=== PATIENT | female | born 1935 | race Caucasian/White ===

== ENCOUNTER 2016-08-26 00:09 | Inpatient (IN) | payer OTHER ==
[~2016-08-26] VITALS: Ht 152.4 cm; Wt 69.9 kg
[~2016-08-26 00:09] MED LIST: ADV25050 INHALATION; ALBU8.5H3 INH; BECL8.7A INH; CALC-695 PO; FLUT16SP17 NASAL; HYD25 PO; LORA10CA PO; LORA10TA3 PO; OMEP20CA16 PO; ONDA4TAB8 PO; PRED20TA PO; TRAZ50TA18 PO
[2016-08-26 01:10] VITALS: Ht 152.4 cm; Wt 69.9 kg
[2016-08-26 01:13] VITALS: BP 146/68; RESP 17
[2016-08-26] MEDS ORDERED: morphine 2 MG INJ IV PRN (03:00)
[2016-08-26] MEDS ORDERED: ONDANSETRON 4 MG INJ IV PRN (03:00)
--- NOTE | 2016-08-26 04:02 | RADRPT ---
PROCEDURE: XR Chest. CLINICAL INDICATION: Shortness of breath. TECHNIQUE: AP Portable chest. COMPARISON: 04/12/2015 FINDINGS: The cardiomediastinal silhouette is normal. The lungs are clear. The osseous structures are unrema rkable. IMPRESSION: No acute findings. RPTAT: HIKT .Ernst Shrestha MD, MD Date Time Electronically viewed and signed by .Ernst Shrestha MD, MD on 08/26/2016 04:02 .T/
[2016-08-26] MEDS: ALBUTEROL/IPRATROPIUM (NEB) 3 ML AMP HHN SCH ×3 (04:12→14:22)
[2016-08-26] MEDS: ACETAMINOPHEN 325 MG TAB PO PRN ×2 (06:32→15:17)
[2016-08-26 06:44] LABS: ADD SCAN DIFF NO
[2016-08-26 06:51] LABS: ABNORMAL IP MESSAGE 1; EOSINOPHILS # 0.1 10^3/ul (0.0-0.5); EOSINOPHILS % 1.7 % (0.0-7.0); HEMATOCRIT 33.4 % (37.0-47.0); HEMOGLOBIN 11.8 g/dl (12.0-16.0); LYMPHOCYTES # 1.2 10^3/ul (0.8-2.9); LYMPHOCYTES % 21.3 % (15.0-51.0); MEAN CORPUSCULAR HEMOGLOBIN 31.2 pg (29.0-33.0); MEAN CORPUSCULAR HGB CONC 35.3 g/dl (32.0-37.0); MEAN CORPUSCULAR VOLUME 88.4 fl (82.0-101.0); MEAN PLATELET VOLUME 11.2 fl (7.4-10.4); MONOCYTE # 0.1 10^3/ul (0.3-0.9); MONOCYTES % 2.3 % (0.0-11.0); NEUTROPHIL # 4.2 10^3/ul (1.6-7.5); PLATELET COUNT 92 10^3/UL (140-415); RED BLOOD COUNT 3.78 10^6/ul (4.20-5.40); RED CELL DISTRIBUTION WIDTH 13.5 % (11.5-14.5); WHITE BLOOD COUNT 5.7 10^3/ul (4.8-10.8)
[2016-08-26 07:10] VITALS: BP 138/66; RESP 18
[2016-08-26 07:51] LABS: ALBUMIN 4.2 g/dl (3.3-4.9); ALBUMIN/GLOBULIN RATIO 1.23; BILIRUBIN,INDIRECT 0.3 mg/dl (0-1.1); BILIRUBIN,TOTAL 0.3 mg/dl (0.2-1.3); CALCIUM 8.8 mg/dl (8.4-10.2); CREATININE 0.81 mg/dl (0.44-1.00); PHOSPHORUS 4.7 mg/dl (2.5-4.9); POTASSIUM 3.9 mmol/L (3.5-5.1); TOTAL PROTEIN 7.6 g/dl (6.1-8.1)
[2016-08-26 08:10] LABS: PLATELET ESTIMATE PLT APPEAR DECREASED
[2016-08-26] MEDS ORDERED: SALMETEROL/FLUTICASONE 250/50 INHA INH SCH (09:00)
[2016-08-26] MEDS ORDERED: METHYLPREDNISOLONE 125 MG INJ IV SCH (09:00)
[2016-08-26] MEDS ORDERED: ALEN35TA23 PO (10:24)
[2016-08-26] MEDS ORDERED: DICL50TA11 PO (10:24)
[2016-08-26] MEDS ORDERED: DOCU-159 PO (10:24)
[2016-08-26] MEDS ORDERED: MOME13HF INHALATION (10:24)
--- NOTE | 2016-08-26 16:54 | HP ---
Date/Time of Note Date/Time of Note DATE: 08/26/16 TIME: 16:37 Assessment/Plan VTE Prophylaxis VTE Prophylaxis Intervention: heparin Lines/Catheters IV C[facility] Type (from [facility] Saline Lock Urinary Cath still in place: No Assessment/Plan Assessment/Plan 1. Shortness of breath, pneumonia related, CT scan r/o others(nodular lesions), levaquin 2. Hypertension, stable 3. Arthritis, stable 4. DVT prophylaxis: heparin HPI/ROS Admit Date/Time Admit Date/Time August 26, 2016 at 01:05 Hx of Present Illness 81 years old female with hypertension, arthritis, and sciatica presents with 2 weeks gradually worsening shortness of breath and dry cough. It gets worse with fever at home. No orthopnea. She feels weak. ROS Constitutional: fatigue, febrile Respiratory: cough, shortness of breath, No sputum Cardiovascular: No chest pain, No edema, No lightheadedness, No no complaints, No orthopenea, No other, No palpitations, No paroxysmal nocturnal dyspnea Gastrointestinal: No blood, No constipation, No decreased appetite, No diarrhea , No flatus, No nausea, No no complaints, No other, No pain, No passing stool, No vomiting Genitourinary: No bleeding, No discharge, No dysuria, No flank pain, No hematuria, No no complaints, No other Musculoskeletal: No back pain, No bone/joint pain, No neck pain, No no complaints, No other, No restricted range of motion, No swelling Skin: No bruising, No erythema, No laceration, No no complaints, No other, No pruritis, No rash, No skin lesions Neurologic: No confusion, No dizziness, No focal-weakness, No headache, No no complaints, No other, No seizure, No syncope Endocrine: No dry skin, No no complaints, No other, No polydypsia, No polyuria , No temp intolerance, No weight change Lymphatic: No adenopathy, No lymphadema, No no complaints, No other, No tender nodes PMH/Family/Social Past Medical History Medical History: hypertension Family History Significant Family History: no pertinent family hx Social History Alcohol Use: none Smoking Status: Never smoker Drug Use: none Exam/Review of Systems Vital Signs Vitals Vital Signs Date Time Temp Pulse Resp B/P Pulse Ox O2 Delivery O2 Flow Rate FiO2 08/26/16 14:22 72 16 97 21 08/26/16 08:00 Nasal Cannula 08/26/16 07:10 97.8 138/66 Intake and Output 08/25/16 08/25/16 08/26/16 15:00 23:00 07:00 Intake Total 750 ml Balance 750 ml Exam Constitutional: alert, oriented, well developed Psych: nl mood/affect, no complaints Head: atraumatic, normocephalic Eyes: EOMI, nl conjunctiva, nl lids ENMT: nl external ears & nose, nl lips & teeth, nl nasal mucosa & septum Neck: non-tender, supple Respiratory: clear to auscultation, normal air movement, No congested cough, No crackles/rales, No diminished breath sounds, No intercostal retraction, No labored breathing, No other, No respirations, No tactile fremitus, No wheezing Cardiovascular: nl pulses, regular rate and rhythm, No S3, No S4, No bruits, No diastolic murmur, No edema, No gallop, No irregular rhythm, No jugular venous distention (JVD), No murmurs/extra sounds, No other, No rub, No systolic murmur Gastrointestinal: nl liver, spleen, non-tender, soft, No ascites, No bowel sounds, No distended, No firm, No hepatomegaly, No mass , No other, No rebound or guarding, No splenomegaly, No surgical scars, No tender Musculoskeletal: nl extremities to inspection Extremities: normal pulses, No calf tenderness, No clubbing, No cyanosis, No edema, No other, No palpable cord, No pitting pedal edema, No tenderness Neurological: INDUSTRIAL PSYCHOLOGIST II-XII intact, nl mental status, nl speech, nl strength Skin: nl turgor, rash or lesions Lymph: nl lymph nodes Labs Result Diagram: 08/26/1655 08/26/1655 Medications Medications Current Medications Methylprednisolone Sodium Succinate (Solu-Medrol) 80 mg DAILY IV Last administered on 08/26/16 08:53; Admin Dose 80 MG; Start 08/26/16 at 09:00 Salmeterol Xinafoate/ Fluticasone (Advair 250/50 Diskus) 1 inh BID INH Last administered on 08/26/16 08:53; Admin Dose 1 INH; Start 08/26/16 at 09:00 Acetaminophen (Tylenol Tab) 650 mg Q6H PRN PO PAIN AND OR ELEVATED TEMP Last administered on 08/26/16t 15:17; Admin Dose 650 MG; Start 08/26/16 at 03:00 Ondansetron HCl (Zofran Inj) 4 mg Q6H PRN IV NAUSEA AND/OR VOMITING; Start at 03:00 Morphine Sulfate (morphine) 2 mg Q4H PRN IV PAIN LEVEL 7-10; Start 08/26/16 at 03:00 JAMAL KUHN MD August 26, 2016 16:47
[2016-08-26] MEDS ORDERED: ALBUTEROL/IPRATROPIUM (NEB) 3 ML AMP HHN PRN (17:00)
[2016-08-26] MEDS: LEVOFLOXACIN 500MG/D5W (PMX) 100 ML IVPB SCH (17:50)
[2016-08-26] MEDS: HYDROCHLOROTHIAZIDE 25 MG TAB PO SCH (17:50)
--- NOTE | 2016-08-26 19:54 | RADRPT ---
PROCEDURE: CT Chest without contrast (high resolution). CLINICAL INDICATION: Abnormal chest x-ray demonstrating nodular infiltrates. TECHNIQUE: High-resolution CT scan of the chest was performed without the administration of intrav enous contrast. Coronal and sagittal reformatted images were obtained from the axial source images. Patient was examined during both deep inspiration and full expiration. Images were reviewed on a h igh resolution PACS workstation. CTDIvol (mGy): 14.31, 3.11, 2.41, 3.06, 2.92, 2.44, 3.41; Total E xam DLP (mGy-cm): 598.09. COMPARISON: Chest x-ray 08/26/2016. FINDINGS: Limited imaging of the lower neck is unremarkable. The heart is not enlarged. There is no pericardial effusion. There is no bulky mediastinal, hilar or axillary lymphadenopathy. Scattered small mediastinal lymph nodes are present. The thoracic aor ta is normal in caliber with atherosclerotic calcification. Coronary artery calcifications are pres ent. The pulmonary arteries are not enlarged. Low lung volumes are observed. Interstitial thickening is seen within the lung apices and lung base s. Scattered reticular markings are seen throughout the lungs. There is no subpleural cystic saravia e. There is no substantial ground-glass opacification of the pulmonary parenchyma. Diffuse bronchi al wall thickening is observed. There is a calcified granuloma of the left upper lobe. Trace pleura l thickening is seen within the lung bases. Limited imaging of the upper abdomen demonstrates a large hiatal hernia. Degenerative changes of the thoracic spine are present. Chest wall soft tissues are unremarkable. IMPRESSION: Low lung volumes with mild nonspecific interstitial thickening of the lung apices and lung bases. Scattered reticular markings throughout the lungs, likely partially reflecting scarring and atelecta tic change. Tiny calcified granuloma of the left upper lobe. RPTAT: HLST .Jennifer Gardner MD, MD Date Time Electronically viewed and signed by .Jennifer Gardner MD, MD on 08/26/2016 19:54 .T/
[2016-08-26 20:11] VITALS: BP 153/69; RESP 18
[2016-08-26] MEDS: DICLOFENAC (EC) 25 MG TAB PO SCH (20:45)
[2016-08-26] MEDS: SALMETEROL/FLUTICASONE 250/50 INHA INH SCH (20:46)
[2016-08-26] MEDS: DOCUSATE SODIUM 100 MG CAP PO SCH (20:46)
[2016-08-26] MEDS: HEPARIN 5,000 UNIT/0.5 ML VIAL SC SCH (20:49)
[2016-08-26] MEDS ORDERED: traZODone 50 MG TAB PO SCH (21:00)
[2016-08-26] MEDS ORDERED: FLUTICASONE 0.05% 16 GM NAS SPRAY NASAL SCH (21:00)
[2016-08-26] MEDS: CALCIUM CARBONATE 500 MG CHEW TAB PO PRN (23:13)
[2016-08-27] MEDS: PANTOPRAZOLE (EC) 40 MG TAB PO SCH (05:12)
[2016-08-27 05:14] LABS: ADD SCAN DIFF NO
[2016-08-27] MEDS: ACETAMINOPHEN 325 MG TAB PO PRN (05:15)
[2016-08-27 05:17] LABS: ABNORMAL IP MESSAGE 1; HEMATOCRIT 31.5 % (37.0-47.0); MEAN CORPUSCULAR HGB CONC 34.9 g/dl (32.0-37.0); MEAN CORPUSCULAR VOLUME 88.7 fl (82.0-101.0); MEAN PLATELET VOLUME 11.9 fl (7.4-10.4); PLATELET COUNT 92 10^3/UL (140-415); RED BLOOD COUNT 3.55 10^6/ul (4.20-5.40); RED CELL DISTRIBUTION WIDTH 13.5 % (11.5-14.5); WHITE BLOOD COUNT 8.6 10^3/ul (4.8-10.8)
[2016-08-27 05:38] LABS: CALCIUM 8.9 mg/dl (8.4-10.2); CREATININE 1.09 mg/dl (0.44-1.00); POTASSIUM 4.3 mmol/L (3.5-5.1)
[2016-08-27 06:08] LABS: THYROID STIMULATING HORMONE 1.21 MIU/L (0.465-4.680)
[2016-08-27 07:20] VITALS: BP 154/69; RESP 20
[2016-08-27] MEDS: HEPARIN 5,000 UNIT/0.5 ML VIAL SC SCH ×2 (08:16→21:37)
[2016-08-27] MEDS: HYDROCHLOROTHIAZIDE 25 MG TAB PO SCH (08:17)
[2016-08-27] MEDS: DICLOFENAC (EC) 25 MG TAB PO SCH (08:17)
[2016-08-27] MEDS: SALMETEROL/FLUTICASONE 250/50 INHA INH SCH ×2 (08:18→21:34)
[2016-08-27] MEDS: DOCUSATE SODIUM 100 MG CAP PO SCH ×2 (08:18→21:35)
[2016-08-27 09:49] LABS: EOSINOPHILS # 2.2 10^3/ul (0.0-0.5); LYMPHOCYTES # 2.4 10^3/ul (0.8-2.9); MONOCYTE # 0.7 10^3/ul (0.3-0.9)
[2016-08-27] MEDS ORDERED: LORATADINE 10 MG TAB PO SCH (10:00)
--- NOTE | 2016-08-27 14:58 | PN ---
Date/Time of Note Date/Time of Note DATE: 08/27/16 TIME: 14:56 Assessment/Plan VTE Prophylaxis VTE Prophylaxis Intervention: heparin Lines/Catheters IV C[facility]ter Type (from [facility]): Saline Lock Urinary Cath still in place: No Assessment/Plan Assessment/Plan 1. Acute bronchitis, on levaquin 2. nasal congestion, on flunase and clarinex, CT sinuses 3. Hypertension, stable 4. Arthritis, stable 5. DVT prophylaxis: heparin Subjective 24 Hr Interval Summary Free Text/Dictation nasal congestion, less cough and shortness of breath Exam/Review of Systems Vital Signs Vitals Vital Signs Date Time Temp Pulse Resp B/P Pulse Ox O2 Delivery O2 Flow Rate FiO2 08/27/16 13:19 95 2.0 08/27/16 13:19 77 18 Nasal Cannula 08/27/16 07:20 98.6 154/69 08/26/16 14:22 21 Intake and Output 08/26/16 08/26/16 08/27/16 15:00 23:00 07:00 Intake Total 940 ml 250 ml Balance 940 ml 250 ml Exam Constitutional: alert, oriented, well developed Head: atraumatic, normocephalic Eyes: EOMI, nl conjunctiva, nl lids ENMT: nl external ears & nose, nl lips & teeth Neck: non-tender, supple Respiratory: clear to auscultation, normal air movement, No congested cough, No crackles/rales, No diminished breath sounds, No intercostal retraction, No labored breathing, No other, No respirations, No tactile fremitus, No wheezing Cardiovascular: nl pulses, regular rate and rhythm, No S3, No S4, No bruits, No diastolic murmur, No edema, No gallop, No irregular rhythm, No jugular venous distention (JVD), No murmurs/extra sounds, No other, No rub, No systolic murmur Gastrointestinal: nl liver, spleen, non-tender, soft, No ascites, No bowel sounds, No distended, No firm, No hepatomegaly, No mass , No other, No rebound or guarding, No splenomegaly, No surgical scars, No tender Musculoskeletal: nl extremities to inspection Extremities: normal pulses, No calf tenderness, No clubbing, No cyanosis, No edema, No other, No palpable cord, No pitting pedal edema, No tenderness Neurological: DUMPER BULK SYSTEM II-XII intact, nl mental status, nl speech, nl strength Skin: nl turgor Lymph: nl lymph nodes Results Result Diagram: 08/27/1641908/27/16419 Results 24 hrs Laboratory Tests Test 08/27/16 04:20 White Blood Count 8.6 # Red Blood Count 3.55 L Hemoglobin 11.0 L Hematocrit 31.5 L Mean Corpuscular Volume 88.7 Mean Corpuscular Hemoglobin 31.0 Mean Corpuscular Hemoglobin Concent 34.9 Red Cell Distribution Width 13.5 Platelet Count 92 L Mean Platelet Volume 11.9 H Neutrophils % 35.0 L Band Neutrophils % 2.0 Lymphocytes % 28.0 Reactive Lymphocytes % 1.0 Monocytes % 8.0 Eosinophils % 25.0 H Metamyelocytes % 1.0 H Neutrophils # 3.0 Lymphocytes # 2.4 Monocytes # 0.7 Eosinophils # 2.2 H Metamyelocytes # 0.1 Sodium Level 130 L Potassium Level 4.3 Chloride Level 96 L Carbon Dioxide Level 27 Anion Gap 11 Blood Urea Nitrogen 22 H Creatinine 1.09 H Glucose Level 101 # Calcium Level 8.9 Thyroid Stimulating Hormone (TSH) 1.210 Medications Medications Current Medications Acetaminophen (Tylenol Tab) 650 mg Q6H PRN PO PAIN AND OR ELEVATED TEMP Last administered on 08/27/16 05:15; Admin Dose 650 MG; Start 08/26/16 at 03:00 Ondansetron HCl (Zofran Inj) 4 mg Q6H PRN IV NAUSEA AND/OR VOMITING; Start at 03:00 Morphine Sulfate 2 mg 2 mg Q4H PRN IV PAIN LEVEL 7-10; Start 08/26/16 at 03:00 Levofloxacin/ Dextrose (Levaquin 500mg/ D5W 100 ml (Pmx)) 100 ml @ 100 mls/hr Q24H IVPB Last administered on 08/26/16 17:50; Admin Dose 100 MLS/HR; Start at 17:00 Heparin Sodium (Porcine) (Heparin (5000 Units/0.5 ml)) 5,000 unit BID SC Last administered on 08/27/16 08:16; Admin Dose 5,000 UNIT; Start 08/26/16 at 21:00 Diclofenac Sodium (Voltaren) 50 mg DAILY PO Last administered on 08/27/16 08: 17; Admin Dose 50 MG; Start 08/26/16 at 17:30 Docusate Sodium (Colace) 100 mg BID PO Last administered on 08/27/16 08:18; Admin Dose 100 MG; Start 08/26/16 at 21:00 Fluticasone Propionate (Flonase 0.05% Nasal) 1 spray QHS NASAL Last administered on 08/26/16 20:46; Admin Dose 1 SPRAY; Start 08/26/16 at 21:00 Hydrochlorothiazide (Hydrochlorothiazide) 25 mg DAILY PO Last administered on 08:17; Admin Dose 25 MG; Start 08/26/16 at 17:30 Salmeterol Xinafoate/ Fluticasone (Advair 250/50 Diskus) 1 inh BID INH Last administered on 08/27/16 08:18; Admin Dose 1 INH; Start 08/26/16 at 21:00 Pantoprazole (Protonix Tab) 40 mg DAILY@06 PO Last administered on 08/27/16 05 :12; Admin Dose 40 MG; Start 08/27/16 at 06:00 Trazodone HCl (Desyrel) 50 mg HS PO ; Start 08/27/16 at 21:00 Calcium Carbonate (Tums) 500 mg Q4H PRN PO HEARTBURN Last administered on 23:13; Admin Dose 500 MG; Start 08/26/16 at 23:00 JAMAL KUHN MD August 27, 2016 14:58
[2016-08-27] MEDS: LEVOFLOXACIN 500MG/D5W (PMX) 100 ML IVPB SCH (16:01)
[2016-08-27] MEDS: LORATADINE 10 MG TAB PO SCH (16:01)
--- NOTE | 2016-08-27 16:54 | RADRPT ---
PROCEDURE: CT Sinus noncontrast CLINICAL INDICATION: Sinus congestion. TECHNIQUE: Noncontrast CT of the head and paranasal sinuses was performed with multiplanar reformatt ed images then generated from the axial acquired data. The administered radiation dose was CTDI vol = 23.74 mGy, DLP = 383.02 mGy-cm. One or more of the following dose reduction techniques were used: Automated exposure control, Adjustment of the mA and/or kV according to patient size, or Use of ite rative reconstruction technique. COMPARISON: There are no similar studies submitted for comparison. FINDINGS: NASAL CAVITY: There is rightward nasal septal deviation. There is a large central osseous spur defor glenys the right inferior turbinate nearly contacting the right lateral nasal cavity wall. There is pr ominent soft tissue within the bilateral middle and left greater than right nasal cavity suggesting polyps or mucosal thickening. SKULL BASE: The cribriform plate is minimally lower on the left. The fovea ethmoidalis is mildly low er on the right. FRONTAL SINUSES: There is mild to moderate bilateral frontal sinus mucosal thickening obstructing th e bilateral frontal recesses. There are bilateral Agger nasi air cells. ETHMOID SINUSES: There is moderate to extensive bilateral ethmoid sinus mucosal thickening. SPHENOID SINUSES: There are mild bilateral sphenoid sinus air fluid level suggesting acute sinusitis . There is mild bilateral sphenoid sinus mucosal thickening obstructing the bilateral sphenoid osti a. There is pneumatization of the left pterygoid plate. MAXILLARY SINUSES: There is mild bilateral maxillary sinus mucosal thickening obstructing the bilate ral sphenoid ostia. There is mild right maxillary sinus air fluid level suggesting acute sinusitis. SKULL: The patient is status post bilateral lens surgery. There is mild to moderate central greater than peripheral cerebral volume loss. There is moderate periventricular hypoattenuation suggesting chronic microvascular ischemic changes. There are mild vascular calcifications within the intracran ial carotid arteries. The bilateral mastoid air cells are well-aerated. OSSEOUS STRUCTURES: No destructive osseous lesion is identified. IMPRESSION: 1. Mild to moderate bilateral frontal sinus mucosal thickening obstructing the bilateral frontal re cesses. 2. Moderate to extensive bilateral ethmoid sinus mucosal thickening. 3. Mild bilateral sphenoid sinus and mild right maxillary sinus air fluid levels suggesting acute s inusitis. 4. Mild bilateral sphenoid sinus mucosal thickening obstructing the bilateral sphenoid ostia. 5. Mild bilateral maxillary sinus mucosal thickening obstructing the bilateral ostiomeatal units. 6. Rightward nasal septal deviation. 7. Soft tissue within the bilateral nasal cavity suggesting polyps or mucosal thickening. Direct i nspection may be performed as clinically warranted. Further findings as detailed above. RPTAT: PP .Guido Giles MD, Date Time Electronically viewed and signed by .Guido Giles MD, on 08/27/2016 16:53 .F/
[2016-08-27 20:11] VITALS: BP 135/62; RESP 19
[2016-08-27] MEDS: FLUTICASONE 0.05% 16 GM NAS SPRAY NASAL SCH (21:34)
[2016-08-27] MEDS: traZODone 50 MG TAB PO SCH (21:35)
[2016-08-27] MEDS: CALCIUM CARBONATE 500 MG CHEW TAB PO PRN (22:37)
[2016-08-28] MEDS ORDERED: ARTIFICIAL TEARS 15 ML OPH BOTH EYES PRN (01:00)
[2016-08-28] MEDS: PANTOPRAZOLE (EC) 40 MG TAB PO SCH (05:14)
[2016-08-28 06:58] LABS: POTASSIUM 4.1 mmol/L (3.5-5.1)
[2016-08-28 07:01] LABS: CREATININE 0.86 mg/dl (0.44-1.00)
[2016-08-28 07:02] LABS: CALCIUM 9.1 mg/dl (8.4-10.2)
[2016-08-28 07:10] VITALS: BP 161/67; RESP 79
[2016-08-28] MEDS: SALMETEROL/FLUTICASONE 250/50 INHA INH SCH ×2 (08:40→20:29)
[2016-08-28] MEDS: DICLOFENAC (EC) 25 MG TAB PO SCH (08:41)
[2016-08-28] MEDS: DOCUSATE SODIUM 100 MG CAP PO SCH ×2 (08:41→20:29)
[2016-08-28] MEDS: LORATADINE 10 MG TAB PO SCH (08:42)
[2016-08-28] MEDS: FLUTICASONE 0.05% 16 GM NAS SPRAY NASAL SCH ×2 (08:42→20:29)
[2016-08-28] MEDS: HYDROCHLOROTHIAZIDE 25 MG TAB PO SCH (08:42)
[2016-08-28] MEDS: HEPARIN 5,000 UNIT/0.5 ML VIAL SC SCH (08:43)
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
--- NOTE | 2016-08-28 17:12 | RADRPT ---
PROCEDURE: US Carotids. CLINICAL INDICATION: Syncope. TECHNIQUE: Sonographic images of the bilateral carotid arteries were obtained using sainz scale and color Doppler imaging. The images were reviewed on a PACS workstation. COMPARISON: None available. FINDINGS: Right: CCA 82.2-95.8 cm/sec Prox ICA 58.4 cm/sec Mid ICA 66.7 cm/sec Dist ICA 72.2 cm/sec ECA 91.8 cm/sec ICA/CCA 0.9 Left: CCA 82.1-85.7 cm/sec Prox ICA 183.6 cm/sec Mid ICA 68.6 cm/sec Dist ICA 67 cm/sec ECA 93.6 cm/sec ICA/CCA 2.2 Antegrade flow is seen within the vertebral arteries bilaterally. There is approximate 38% luminal n arrowing of the right carotid bulb and approximately 47% narrowing of the left carotid bulb. IMPRESSION: 1. There is elevated flow velocity with associated luminal narrowing corresponding to 50-69% stenos is of the proximal left ICA. validated velocity measurements with angiographic measurements, velocit y criteria are extrapolated from diameter data as defined by the Society of Radiologists in [facility] Consensus Conference Radiology 2003; 229;340-346. This study does indirectly reference the measu rement of the distal ICA diameter as the denominator for stenosis measurement. 2. Non hemodynamically significant stenosis of the carotid bulbs bilaterally. 3. Antegrade flow seen within the vertebral arteries bilaterally. RPTAT: HLBP .Ismael Durbin MD, Date Time Electronically viewed and signed by .Ismael Durbin MD, MD on 08/28/2016 17:11 .P/
[2016-08-28] MEDS: LEVOFLOXACIN 500MG/D5W (PMX) 100 ML IVPB SCH (18:22)
[2016-08-28] MEDS: traZODone 50 MG TAB PO SCH (20:29)
[2016-08-28 22:37] VITALS: BP 139/63; RESP 19
[2016-08-29] MEDS: ACETAMINOPHEN 325 MG TAB PO PRN (01:37)
[2016-08-29] MEDS: LEVOFLOXACIN 250 MG TAB PO SCH (05:46)
[2016-08-29] MEDS: PANTOPRAZOLE (EC) 40 MG TAB PO SCH (05:46)
[2016-08-29 07:45] LABS: ADD SCAN DIFF NO
[2016-08-29 07:53] LABS: ABNORMAL IP MESSAGE 1; BASOPHILS % 0.1 % (0.0-2.0); EOSINOPHILS # 0.3 10^3/ul (0.0-0.5); HEMATOCRIT 32.6 % (37.0-47.0); HEMOGLOBIN 11.3 g/dl (12.0-16.0); LYMPHOCYTES # 2.1 10^3/ul (0.8-2.9); LYMPHOCYTES % 22.1 % (15.0-51.0); MEAN CORPUSCULAR HEMOGLOBIN 30.3 pg (29.0-33.0); MEAN CORPUSCULAR HGB CONC 34.7 g/dl (32.0-37.0); MEAN CORPUSCULAR VOLUME 87.4 fl (82.0-101.0); MEAN PLATELET VOLUME 11.7 fl (7.4-10.4); MONOCYTES % 10.5 % (0.0-11.0); NEUTROPHIL # 5.6 10^3/ul (1.6-7.5); NEUTROPHILS % 58.8 % (39.0-77.0); PLATELET COUNT 108 10^3/UL (140-415); RED BLOOD COUNT 3.73 10^6/ul (4.20-5.40); RED CELL DISTRIBUTION WIDTH 13.3 % (11.5-14.5); WHITE BLOOD COUNT 9.5 10^3/ul (4.8-10.8)
[2016-08-29 08:11] LABS: POTASSIUM 3.6 mmol/L (3.5-5.1)
[2016-08-29 08:14] LABS: CALCIUM 8.9 mg/dl (8.4-10.2); CREATININE 0.94 mg/dl (0.44-1.00)
[2016-08-29 08:36] VITALS: BP 125/54; RESP 16
[2016-08-29] MEDS: LORATADINE 10 MG TAB PO SCH (08:56)
[2016-08-29] MEDS: DOCUSATE SODIUM 100 MG CAP PO SCH ×2 (08:57→20:42)
[2016-08-29] MEDS: HYDROCHLOROTHIAZIDE 25 MG TAB PO SCH (08:57)
[2016-08-29] MEDS: DICLOFENAC (EC) 25 MG TAB PO SCH (08:57)
[2016-08-29] MEDS: FLUTICASONE 0.05% 16 GM NAS SPRAY NASAL SCH ×2 (08:58→20:42)
[2016-08-29] MEDS: SALMETEROL/FLUTICASONE 250/50 INHA INH SCH ×2 (08:58→20:42)
--- NOTE | 2016-08-29 10:39 | RADRPT ---
Vent Rate: 79 bpm RR Interval: 0 msec MS Interval: 154 msec QRS Duration: 92 msec QT Interval: 426 msec QTC Interval: 488 msec P-R-T [place]: 67 - 19 - 50 degrees Normal sinus rhythm Anterior infarct , age undetermined Abnormal ECG Electronically Signed By: Shanique Blair [id number]
--- NOTE | 2016-08-29 16:05 | PN ---
Date/Time of Note Date/Time of Note DATE: 08/29/16 TIME: 15:57 Assessment/Plan VTE Prophylaxis VTE Prophylaxis Intervention: SCD's Lines/Catheters IV C[facility]ter Type [facility]from [facility] Saline Lock Urinary Cath still in place: No Assessment/Plan Chief Complaint/Hosp Course Assessment/Plan: 81 F with: 1. Syncope, likely orthostatic, improved. 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 2. Acute bronchitis, on levaquin - duoneb's prn, CPAP at night 3. Acute sinusitis, on flunase and clarinex 4. Hypertension, stable 5. Arthritis, stable 6. Thrombocytopenia, follow up with CBC 7. DVT prophylaxis: heparin Problems: Subjective 24 Hr Interval Summary Free Text/Dictation Pt refused CPAP last night. Exam/Review of Systems Vital Signs Vitals Vital Signs Date Time Temp Pulse Resp B/P Pulse Ox O2 Delivery O2 Flow Rate FiO2 08/29/16 10:29 Nasal Cannula 3.0 08/29/16 08:36 98.1 87 16 125/54 94 08/26/16 14:22 21 Intake and Output 08/28/16 08/28/16 08/29/16 15:00 23:00 07:00 Intake Total 1200 ml 600 ml Balance 1200 ml 600 ml Exam Constitutional: alert, oriented, well developed Psych: nl mood/affect, no complaints Head: atraumatic, normocephalic Eyes: EOMI, PERRL, nl conjunctiva, nl lids ENMT: nl external ears & nose, nl lips & teeth, nl nasal mucosa & septum Neck: supple Respiratory: clear to auscultation, normal air movement, No congested cough, No crackles/rales, No diminished breath sounds, No intercostal retraction, No labored breathing, No other, No respirations, No tactile fremitus, No wheezing Cardiovascular: nl pulses, regular rate and rhythm, No S3, No S4, No bruits, No diastolic murmur, No edema, No gallop, No irregular rhythm, No jugular venous distention (JVD), No murmurs/extra sounds, No other, No rub, No systolic murmur Gastrointestinal: nl liver, spleen, non-tender, soft, No ascites, No bowel sounds, No distended, No firm, No hepatomegaly, No mass , No other, No rebound or guarding, No splenomegaly, No surgical scars, No tender Musculoskeletal: nl extremities to inspection Extremities: normal pulses, No calf tenderness, No clubbing, No cyanosis, No edema, No other, No palpable cord, No pitting pedal edema, No tenderness Neurological: PATROL MAN II-XII intact, nl mental status, nl speech, nl strength Skin: nl turgor Results Result Diagram: 08/29/1648 08/29/16 0548 Results 24 hrs Laboratory Tests Test 08/29/16 05:48 White Blood Count 9.5 Red Blood Count 3.73 L Hemoglobin 11.3 L Hematocrit 32.6 L Mean Corpuscular Volume 87.4 Mean Corpuscular Hemoglobin 30.3 Mean Corpuscular Hemoglobin Concent 34.7 Red Cell Distribution Width 13.3 Platelet Count 108 L Mean Platelet Volume 11.7 H Neutrophils % 58.8 Lymphocytes % 22.1 Monocytes % 10.5 Eosinophils % 3.0 Basophils % 0.1 Nucleated Red Blood Cells % 0.0 Neutrophils # 5.6 Lymphocytes # 2.1 Monocytes # 1.0 H Eosinophils # 0.3 Basophils # 0.0 Nucleated Red Blood Cells # 0.0 Sodium Level 127 L Potassium Level 3.6 Chloride Level 90 L Carbon Dioxide Level 25 Anion Gap 16 Blood Urea Nitrogen 20 Creatinine 0.94 Glucose Level 109 Calcium Level 8.9 Medications Medications Current Medications Acetaminophen (Tylenol Tab) 650 mg Q6H PRN PO PAIN AND OR ELEVATED TEMP Last administered on 08/29/16 01:37; Admin Dose 650 MG; Start 08/26/16 at 03:00 Ondansetron HCl (Zofran Inj) 4 mg Q6H PRN IV NAUSEA AND/OR VOMITING; Start at 03:00 Morphine Sulfate (morphine) 2 mg Q4H PRN IV PAIN LEVEL 7-10; Start 08/26/16 at 03:00 Diclofenac Sodium (Voltaren) 50 mg DAILY PO Last administered on 08/29/16 08: 57; Admin Dose 50 MG; Start 08/26/16 at 17:30 Docusate Sodium (Colace) 100 mg BID PO Last administered on 08/29/16 08:57; Admin Dose 100 MG; Start 08/26/16 at 21:00 Hydrochlorothiazide (Hydrochlorothiazide) 25 mg DAILY PO Last administered on 08:57; Admin Dose 25 MG; Start 08/26/16 at 17:30 Salmeterol Xinafoate/ Fluticasone (Advair 250/50 Diskus) 1 inh BID INH Last administered on 08/29/16 08:58; Admin Dose 1 INH; Start 08/26/16 at 21:00 Pantoprazole (Protonix Tab) 40 mg DAILY@06 PO Last administered on 08/29/16 05 :46; Admin Dose 40 MG; Start 08/27/16 at 06:00 Trazodone HCl (Desyrel) 50 mg HS PO Last administered on 08/28/16 20:29; Admin Dose 50 MG; Start 08/27/16 at 21:00 Calcium Carbonate (Tums) 500 mg Q4H PRN PO HEARTBURN Last administered on 22:37; Admin Dose 500 MG; Start 08/26/16 at 23:00 Fluticasone Propionate (Flonase 0.05% Nasal) 1 spray BID NASAL Last administered on 08/29/16 08:58; Admin Dose 1 SPRAY; Start 08/27/16 at 21:00 Loratadine (Claritin) 10 mg DAILY PO Last administered on 08/29/16 08:56; Admin Dose 10 MG; Start 08/27/16 at 15:30 Eye Lubricant (Artificial Tears Oph) 2 drop Q6H PRN BOTH EYES DRY EYES; Start 08/28/16 at 01:00 Levofloxacin (Levaquin) 250 mg DAILY@06 PO Last administered on 08/29/16 05:46 ; Admin Dose 250 MG; Start 08/29/16 at 06:00 Hydralazine HCl (Apresoline) 10 mg Q6H PRN PO sbp>160; Start 08/28/16 at 16:30 JOHN MOULTON August 29, 2016 16:05
[2016-08-29] MEDS: traZODone 50 MG TAB PO SCH (20:42)
[2016-08-29 20:58] VITALS: BP 139/65; RESP 20
[2016-08-30] MEDS: LEVOFLOXACIN 250 MG TAB PO SCH (05:07)
[2016-08-30] MEDS: PANTOPRAZOLE (EC) 40 MG TAB PO SCH (05:07)
[2016-08-30] MEDS: ACETAMINOPHEN 325 MG TAB PO PRN ×2 (05:10→20:44)
[2016-08-30 06:23] LABS: ADD SCAN DIFF NO
[2016-08-30 06:43] LABS: ABNORMAL IP MESSAGE 1; BASOPHILS % 0.1 % (0.0-2.0); LYMPHOCYTES # 2.1 10^3/ul (0.8-2.9); MONOCYTE # 1.2 10^3/ul (0.3-0.9)
[2016-08-30 06:53] LABS: POTASSIUM 3.6 mmol/L (3.5-5.1)
[2016-08-30 06:56] LABS: CALCIUM 8.9 mg/dl (8.4-10.2); CREATININE 0.88 mg/dl (0.44-1.00)
[2016-08-30 07:11] LABS: HEMATOCRIT 32.3 % (37.0-47.0); HEMOGLOBIN 11.3 g/dl (12.0-16.0); RED BLOOD COUNT 3.71 10^6/ul (4.20-5.40); WHITE BLOOD COUNT 10.8 10^3/ul (4.8-10.8)
[2016-08-30 07:12] LABS: EOSINOPHILS # 0.5 10^3/ul (0.0-0.5); EOSINOPHILS % 4.7 % (0.0-7.0); LYMPHOCYTES % 19.1 % (15.0-51.0); MEAN CORPUSCULAR HEMOGLOBIN 30.5 pg (29.0-33.0); MEAN CORPUSCULAR VOLUME 87.1 fl (82.0-101.0); MEAN PLATELET VOLUME 11.6 fl (7.4-10.4); MONOCYTES % 10.9 % (0.0-11.0); NEUTROPHIL # 6.4 10^3/ul (1.6-7.5); NEUTROPHILS % 59.4 % (39.0-77.0); PLATELET COUNT 128 10^3/UL (140-415); RED CELL DISTRIBUTION WIDTH 13.4 % (11.5-14.5)
[2016-08-30 08:05] VITALS: BP 151/68; RESP 20
[2016-08-30] MEDS: FLUTICASONE 0.05% 16 GM NAS SPRAY NASAL SCH (08:40)
[2016-08-30] MEDS: LORATADINE 10 MG TAB PO SCH (08:40)
[2016-08-30] MEDS: SALMETEROL/FLUTICASONE 250/50 INHA INH SCH ×2 (08:41→20:44)
[2016-08-30] MEDS: DICLOFENAC (EC) 25 MG TAB PO SCH (08:41)
[2016-08-30] MEDS: DOCUSATE SODIUM 100 MG CAP PO SCH ×2 (08:41→20:45)
[2016-08-30] MEDS: HYDROCHLOROTHIAZIDE 25 MG TAB PO SCH (08:41)
--- NOTE | 2016-08-30 13:05 | PN ---
Date/Time of Note Date/Time of Note DATE: 08/30/16 TIME: 12:55 Assessment/Plan VTE Prophylaxis VTE Prophylaxis Intervention: SCD's Lines/Catheters IV Catheter Type (from Nrs): Saline Lock Urinary Cath still in place: No Assessment/Plan Chief Complaint/Hosp Course Assessment/Plan: 81 F with: 1. Syncope, likely orthostatic, improved. 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 2. Acute bronchitis - improving, on levaquin - duoneb's prn, continue CPAP at night 3. Acute sinusitis, on flunase and clarinex 4. Hypertension, stable 5. Arthritis, stable 6. Thrombocytopenia, follow up with CBC 7. DVT prophylaxis: heparin Problems: Subjective 24 Hr Interval Summary Free Text/Dictation No acute events overnight, used CPAP at night. Exam/Review of Systems Vital Signs Vitals Vital Signs Date Time Temp Pulse Resp B/P Pulse Ox O2 Delivery O2 Flow Rate FiO2 08/30/16 08:30 Nasal Cannula 2.0 08/30/16 08:05 98.9 88 20 151/68 94 08/26/16 14:22 21 Intake and Output 08/29/16 08/29/16 08/30/16 15:00 23:00 07:00 Intake Total 920 ml 700 ml Balance 920 ml 700 ml Exam Constitutional: alert, oriented, well developed Psych: nl mood/affect, no complaints Head: atraumatic, normocephalic Eyes: EOMI, PERRL, nl conjunctiva, nl lids ENMT: nl external ears & nose, nl lips & teeth, nl nasal mucosa & septum Neck: supple Respiratory: clear to auscultation, normal air movement, No congested cough, No crackles/rales, No diminished breath sounds, No intercostal retraction, No labored breathing, No other, No respirations, No tactile fremitus, No wheezing Cardiovascular: nl pulses, regular rate and rhythm, No S3, No S4, No bruits, No diastolic murmur, No edema, No gallop, No irregular rhythm, No jugular venous distention (JVD), No murmurs/extra sounds, No other, No rub, No systolic murmur Gastrointestinal: nl liver, spleen, non-tender, soft, No ascites, No bowel sounds, No distended, No firm, No hepatomegaly, No mass , No other, No rebound or guarding, No splenomegaly, No surgical scars, No tender Musculoskeletal: nl extremities to inspection Extremities: normal pulses, No calf tenderness, No clubbing, No cyanosis, No edema, No other, No palpable cord, No pitting pedal edema, No tenderness Neurological: SHOEMAKING FINISHER II-XII intact, nl mental status, nl speech, nl strength Skin: nl turgor Results Result Diagram: 08/30/1640 08/30/16 0540 Results 24 hrs Laboratory Tests Test 08/30/16 05:40 White Blood Count 10.8 Red Blood Count 3.71 L Hemoglobin 11.3 L Hematocrit 32.3 L Mean Corpuscular Volume 87.1 Mean Corpuscular Hemoglobin 30.5 Mean Corpuscular Hemoglobin Concent 35.0 Red Cell Distribution Width 13.4 Platelet Count 128 L Mean Platelet Volume 11.6 H Neutrophils % 59.4 Lymphocytes % 19.1 Monocytes % 10.9 Eosinophils % 4.7 Basophils % 0.1 Nucleated Red Blood Cells % 0.0 Neutrophils # 6.4 Lymphocytes # 2.1 Monocytes # 1.2 H Eosinophils # 0.5 Basophils # 0.0 Nucleated Red Blood Cells # 0.0 Sodium Level 128 L Potassium Level 3.6 Chloride Level 94 L Carbon Dioxide Level 27 Anion Gap 11 Blood Urea Nitrogen 20 Creatinine 0.88 Glucose Level 114 Calcium Level 8.9 Medications Medications Current Medications Acetaminophen (Tylenol Tab) 650 mg Q6H PRN PO PAIN AND OR ELEVATED TEMP Last administered on 08/30/16 05:10; Admin Dose 650 MG; Start 08/26/16 at 03:00 Ondansetron HCl (Zofran Inj) 4 mg Q6H PRN IV NAUSEA AND/OR VOMITING; Start at 03:00 Morphine Sulfate (morphine) 2 mg Q4H PRN IV PAIN LEVEL 7-10; Start 08/26/16 at 03:00 Diclofenac Sodium (Voltaren) 50 mg DAILY PO Last administered on 08/30/16 08: 41; Admin Dose 50 MG; Start 08/26/16 at 17:30 Docusate Sodium (Colace) 100 mg BID PO Last administered on 08/30/16 08:41; Admin Dose 100 MG; Start 08/26/16 at 21:00 Hydrochlorothiazide (Hydrochlorothiazide) 25 mg DAILY PO Last administered on 08:41; Admin Dose 25 MG; Start 08/26/16 at 17:30 Salmeterol Xinafoate/ Fluticasone (Advair 250/50 Diskus) 1 inh BID INH Last administered on 08/30/16 08:41; Admin Dose 1 INH; Start 08/26/16 at 21:00 Pantoprazole (Protonix Tab) 40 mg DAILY@06 PO Last administered on 08/30/16 05 :07; Admin Dose 40 MG; Start 08/27/16 at 06:00 Trazodone HCl (Desyrel) 50 mg HS PO Last administered on 08/29/16 20:42; Admin Dose 50 MG; Start 08/27/16 at 21:00 Calcium Carbonate (Tums) 500 mg Q4H PRN PO HEARTBURN Last administered on 22:37; Admin Dose 500 MG; Start 08/26/16 at 23:00 Fluticasone Propionate (Flonase 0.05% Nasal) 1 spray BID NASAL Last administered on 08/30/16 08:40; Admin Dose 1 SPRAY; Start 08/27/16 at 21:00 Loratadine (Claritin) 10 mg DAILY PO Last administered on 08/30/16 08:40; Admin Dose 10 MG; Start 08/27/16 at 15:30 Eye Lubricant (Artificial Tears Oph) 2 drop Q6H PRN BOTH EYES DRY EYES; Start 08/28/16 at 01:00 Levofloxacin (Levaquin) 250 mg DAILY@06 PO Last administered on 08/30/16 05:07 ; Admin Dose 250 MG; Start 08/29/16 at 06:00 Hydralazine HCl (Apresoline) 10 mg Q6H PRN PO sbp>160; Start 08/28/16 at 16:30 JOHN MOULTON August 30, 2016 13:05
[2016-08-30] MEDS ORDERED: OXYMETAZOLINE 0.05% 15 ML NAS SPRAY NASAL PRN (16:00)
[2016-08-30 20:11] VITALS: BP 148/65; RESP 18
[2016-08-30] MEDS: traZODone 50 MG TAB PO SCH (20:44)
[2016-08-31] MEDS: LEVOFLOXACIN 250 MG TAB PO SCH (05:34)
[2016-08-31] MEDS: PANTOPRAZOLE (EC) 40 MG TAB PO SCH (05:36)
[2016-08-31 06:25] LABS: ADD SCAN DIFF NO
[2016-08-31 06:40] LABS: ABNORMAL IP MESSAGE 1; BASOPHILS % 0.2 % (0.0-2.0); EOSINOPHILS # 0.5 10^3/ul (0.0-0.5); EOSINOPHILS % 4.4 % (0.0-7.0); HEMATOCRIT 32.2 % (37.0-47.0); HEMOGLOBIN 11.5 g/dl (12.0-16.0); LYMPHOCYTES # 2.2 10^3/ul (0.8-2.9); LYMPHOCYTES % 18.5 % (15.0-51.0); MEAN CORPUSCULAR HEMOGLOBIN 30.9 pg (29.0-33.0); MEAN CORPUSCULAR HGB CONC 35.7 g/dl (32.0-37.0); MEAN CORPUSCULAR VOLUME 86.6 fl (82.0-101.0); MEAN PLATELET VOLUME 10.9 fl (7.4-10.4); MONOCYTE # 1.3 10^3/ul (0.3-0.9); MONOCYTES % 10.8 % (0.0-11.0); NEUTROPHILS % 60.6 % (39.0-77.0); PLATELET COUNT 136 10^3/UL (140-415); RED BLOOD COUNT 3.72 10^6/ul (4.20-5.40); WHITE BLOOD COUNT 11.6 10^3/ul (4.8-10.8)
[2016-08-31 07:04] LABS: CALCIUM 9.2 mg/dl (8.4-10.2); CREATININE 0.87 mg/dl (0.44-1.00); POTASSIUM 3.9 mmol/L (3.5-5.1)
[2016-08-31 08:00] VITALS: BP 141/65; RESP 19
[2016-08-31] MEDS: LORATADINE 10 MG TAB PO SCH (08:41)
[2016-08-31] MEDS: HYDROCHLOROTHIAZIDE 25 MG TAB PO SCH (08:41)
[2016-08-31] MEDS: DOCUSATE SODIUM 100 MG CAP PO SCH (08:41)
[2016-08-31] MEDS: SALMETEROL/FLUTICASONE 250/50 INHA INH SCH (08:41)
[2016-08-31] MEDS: DICLOFENAC (EC) 25 MG TAB PO SCH (08:41)
[2016-08-31] MEDS ORDERED: LEVO250T35 PO (16:36)
[2016-08-31] MEDS ORDERED: OXYM15SP34 NASAL (16:36)
--- NOTE | 2016-08-31 16:48 | DS ---
Date/Time of Note Date/Time of Note DATE: 08/31/16 TIME: 16:38 Discharge Summary Admission/Discharge Info Admit Date/Time August 26, 2016 at 01:05 Discharge Date/Time Final Diagnosis 1. Syncope, likely orthostatic, improved 2. Acute bronchitis, on levaquin 3. Acute sinusitis, on levaquin and nsal spray 4. Hypertension, stable 5. Arthritis, stable 6. Thrombocytopenia, improved Patient Condition: Stable Hx of Present Illness 81 years old female with hypertension, arthritis, and sciatica presents with 2 weeks gradually worsening shortness of breath and dry cough. It gets worse with fever at home. No orthopnea. She feels weak. Hospital Course CT scan indicates diffuse sinus disease that she is getting nasal spray and levaquin. Her lungs has been clear with unremarkable CXR, CT chest revealed Low lung volumes with mild nonspecific interstitial thickening of the lung apices and lung bases. Scattered reticular markings throughout the lungs, likely partially reflecting scarring and atelectatic change. The cough and shortness of breath is most likely sinusitis related, with possible acute bronchitis, that she is on levaquin. Patient got up in the night of 08/27/2016, went to restroom and had a bowel movement, then got up with dizziness then lost consciousness. She was caught by her daughter who was with her at that time and no injury.She has no similar symptoms there after. Carotid US revealed on 50-60% left ICA lesion. The syncope is considered orthostatic. Home Meds Active Scripts Levofloxacin* (Levaquin*) 250 Mg Tablet, 250 MG PO DAILY@06 for 5 Days, TAB Prov:JAMAL KUHN MD 08/31/16 Oxymetazoline Hcl* (Afrin Linton*) 0.05% - 15 Ml L[place], 2 SPRAY NASAL Q12 Y for nasal congestion for 20 Days, SPRAY Prov:JAMAL KUHN MD 08/31/16 Loratadine* (Claritin*) 10 Mg Capsule, 10 MG PO DAILY, #30 CAP Prov:SEEMA MOLINA 04/12/15 Albuterol Sulfate* (Proair HFA*) 8.5 Gm Hfa.aer.ad, 2 PUFF INH Q4, #1 INHALER Prov:SEEMA MOLINA 04/12/15 Reported Medications Mometasone-Formoterol (Dulera) 200-5 Mcg/Inh - 13 Gm Hfa.aer.ad, 2 PUFFS INHALATION BID, #1 INHALER 08/26/16 Diclofenac Sodium* (Diclofenac Sodium*) 50 Mg Tablet.dr, 50 MG PO DAILY, #60 TAB 08/26/16 Docusate Sodium* (Docusate Sodium*) 100 Mg Capsule, 100 MG PO BID, #60 CAP 08/26/16 Alendronate Sodium* (Alendronate Sodium*) 35 Mg Tablet, 70 MG PO Q7D, #4 TAB 08/26/16 Salmeterol Xinaf/Fluticasone* (Advair*) 250-50 Diskus Inhaler, 1 INH INHALATION BID, #1 INHALER 04/12/15 Trazodone Hcl* (Trazodone Hcl*) 50 Mg Tablet, 50 MG PO Q4, #30 TAB 04/12/15 Omeprazole* (Omeprazole*) 20 Mg Capsule.dr, 20 MG PO DAILY, #60 CAP 04/12/15 Hydrochlorothiazide* (Hydrochlorothiazide*) 25 Mg Tab, 25 MG PO DAILY, #30 TAB 04/12/15 Fluticasone Propionate* (Fluticasone Propionate* Nasal) 50 Mcg/Linton - 16 Gm Linton.susp, 1 SPRAY NASAL QHS, #1 BOTTLE TO EACH NOSTRIL 04/12/15 Calcium Carbonate/Vitamin D3 (Calcium 600 + D Tablet) 1 Each Tablet, 1 EACH PO EVERY OTHER DAY, TAB 04/12/15 Discontinued Reported Medications Loratadine* (Loratadine*) 10 Mg Tablet, 10 MG PO DAILY, #30 TAB 04/12/15 Albuterol Sulfate* (Proair HFA*) 8.5 Gm Hfa.aer.ad, 2 PUFF INH Q4H Y for WHEEZING AND SOB, #1 INHALER 04/12/15 Discontinued Scripts Ondansetron Hcl* (Zofran*) 4 Mg Tablet, 4 MG PO Q8H Y for NAUSEA AND/OR VOMITING , #10 TAB Prov:SEEMA MOLINA 04/12/15 Prednisone* (Prednisone*) 20 Mg Tab, 20 MG PO BID, #6 TAB Prov:SEEMA MOLINA 04/12/15 Beclomethasone Dip* (Qvar 40*) 7.3 Gm Inha, 2 PUFF INH BID, #1 INHALER Prov:TRACYSEEMA 04/12/15 Follow-up Plan follow up with with PCP in one week Primary Care Provider [facility] Pending Labs Laboratory Tests Test 08/31/16 05:54 08/31/16 05:55 White Blood Count 11.610^3/ul (4.8-10.8) Red Blood Count 3.7210^6/ul (4.20-5.40) Hemoglobin 11.5g/dl (12.0-16.0) Hematocrit 32.2% (37.0-47.0) Mean Corpuscular Volume 86.6fl (82.0-101.0) Mean Corpuscular Hemoglobin 30.9pg (29.0-33.0) Mean Corpuscular Hemoglobin Concent 35.7g/dl (32.0-37.0) Red Cell Distribution Width 13.0% (11.5-14.5) Platelet Count 22813^3/UL (140-415) Mean Platelet Volume 10.9fl (7.4-10.4) Neutrophils % 60.6% (39.0-77.0) Lymphocytes % 18.5% (15.0-51.0) Monocytes % 10.8% (0.0-11.0) Eosinophils % 4.4% (0.0-7.0) Basophils % 0.2% (0.0-2.0) Nucleated Red Blood Cells % 0.0/100WBC (0.0-0.0) Neutrophils # 7.010^3/ul (1.6-7.5) Lymphocytes # 2.210^3/ul (0.8-2.9) Monocytes # 1.310^3/ul (0.3-0.9) Eosinophils # 0.510^3/ul (0.0-0.5) Basophils # 0.010^3/ul (0.0-0.1) Nucleated Red Blood Cells # 0.010^3/ul (0.0-0.0) Sodium Level 130mmol/L (135-144) Potassium Level 3.9mmol/L (3.5-5.1) Chloride Level 92mmol/L (97-110) Carbon Dioxide Level 25mmol/L (21-31) Anion Gap 17 (8-16) Blood Urea Nitrogen 22mg/dl (7-20) Creatinine 0.87mg/dl (0.44-1.00) Glucose Level 107mg/dl (70-220) Calcium Level 9.2mg/dl (8.4-10.2) JAMAL KUHN MD August 31, 2016 16:48
--- NOTE | 2016-09-01 14:26 | RADRPT ---
Echocardiogram Report Patient Name: LORETA MORGAN Gender: Female Date: 1935 Study Date: 31-Aug-2016 Sailboat Captain: Noé [facility] Location: 2266 Ref. Physician: JAMAL KUHN Quality: Adequate Procedures: Transthoracic echocardiogram with complete 2D, M-Mode, and doppler examination. Indications: Syncope. 2D/M Mode Doppler Measurement Value Normal Ranges Measurement Value Normal Ranges LVIDd 2D 3.8 3.5 - 5.6 cm AV Peak Edgar 1.7 m/sec LVIDs 2D 2.4 2.1 - 4.1 cm AV Peak PG 11.2 mmHg LVPWd 2D 1.0 0.6 - 1.1 cm AI Peak PG 42.1 mmHg IVSd 2D 1.1 0.6 - 1.1 cm AI Peak Edgar 3.2 m/sec AoR Diam 2D 2.6 2.0 - 3.7 cm AI PHT 263.8 msec EDV 2D 61.4 cm3 LVOT Peak Edgar 1.4 m/sec ESV 2D 14.3 cm3 LVOT Peak PG 8.0 mmHg MV E Peak Edgar 0.8 m/sec MV A Peak Edgar 1.5 m/sec MV E/A 0.5 MV Decel Time 211 msec MV Decel Marathon 4 MV E/A 0.5 Findings Left Ventricle: Hyperdynamic left ventricular systolic function. Normal left ventricular cavity size. Normal left ventricular wall thickness. Ejection fraction is visually estimated at 70 %. Abnormal Diastolic Function. Right Ventricle: Normal right ventricular size. Normal right ventricular systolic function. Left Atrium: Upper limit of normal left atrial size. Right Atrium: The right atrium is normal in size. Mitral Valve: Mild mitral leaflet calcification. Mild mitral annular calcification. Trace mitral regurgitation. Aortic Valve: No hemodynamically significant aortic stenosis by doppler. Aortic cusps appear mildly calcified. Mild to moderate aortic valve regurgitation. Tricuspid Valve: Normal appearance of the tricuspid valve. There is trace tricuspid regurgitation. Pulmonic Valve: Pulmonic valve not well visualized. No evidence of pulmonic regurgitation. Pericardium: Normal pericardium with no significant pericardial effusion. Aorta: Normal aortic root. IVC: Normal size and normal respiratory collapse consistent with normal right atrial pressure. Conclusions 1.Hyperdynamic left ventricular systolic function. Normal left ventricular cavity size. Normal left ventricular wall thickness. Ejection fraction is visually estimated at 70 %. Abnormal Diastolic Function. 2.Normal right ventricular size. Normal right ventricular systolic function. 3.Upper limit of normal left atrial size. 4.The right atrium is normal in size. 5.No hemodynamically significant aortic stenosis by doppler. Aortic cusps appear mildly calcified. Mild to moderate aortic valve regurgitation. 6.No significant valvular stenosis or regurgitation seen of remaining visualized valves. 7.Normal pericardium with no significant pericardial effusion. Electronically Signed By: Cullen Poon 01-Sep-2016 14:26:11 -0700 Patient Name: LORETA MORGAN Study Date: 31-Aug-2016 [id number]
== END 2016-08-31 18:44 | disposition home or self-care (01) | DRG 203 ==
LOC: PP2 01:05
PROVIDERS: ADMIT Internal Medicine; ATTEND Internal Medicine
DX: J20.9 Acute bronchitis, unspecified (principal); D69.6 Thrombocytopenia, unspecified; R55 Syncope and collapse; J01.90 Acute sinusitis, unspecified; I10 Essential (primary) hypertension; M19.91 Primary osteoarthritis, unspecified site
CPT/HCPCS: 70486; 71010; 71250; 80048; 80053; 83735; 84100; 84443; 85025; 93005; 93306; 93880; 94640; 94664; J1644; J1956; J2930

== ENCOUNTER 2017-11-07 13:02 | Emergency (ER) | END 2017-11-07 18:35 | disposition home or self-care (01) ==

== ENCOUNTER 2017-11-27 14:52 | Inpatient (IN) | END 2017-12-02 13:15 | disposition home health service (06) | DRG 690 ==